=== PATIENT | female | born 1940 | race Two or more races ===

== ENCOUNTER 2024-10-06 23:03 | Emergency (ER) | payer MEDICARE, OTHER, SELFPAY ==
[2024-10-06 23:19] VITALS: BP 156/76
[2024-10-07] MEDS: DECADRON 10 MG IV (00:15)
[2024-10-07] MEDS: PEPCID 20 MG IV (00:16)
[2024-10-07] MEDS: BENADRYL 25 MG IV ×2 (00:16→02:09)
[2024-10-07 00:35] LABS: % Basophils 0.2 % (0-2); % Eosinophils 1.4 % (0-6); % Immature Granulocytes 0.3 % (0-0.5); % Lymphocytes 14.1 % (20.5-51.1); % Monocytes 8.1 % (1.7-9.3); % Neutrophils 75.9 % (42.2-75.2); Absolute Eosinophils 0.1 10^3/uL (0-0.7); Absolute Lymphocytes 1.3 10^3/uL (1.2-3.4); Absolute Monocytes 0.8 10^3/uL (0.1-0.6); Absolute Neutrophils 7.1 10^3/uL (1.4-6.5); Hemoglobin 11.3 g/dL (12.0-16.0); Mean Corp Hgb Conc. 31.4 g/dL (33.0-37.0); Mean Corpuscular Volume 79.6 fL (81.0-99.0); Mean Platelet Volume 9.7 fL (7.4-10.4); Nucleated Red Blood Cells % 0 %; Platelet Count 298 10^3/uL (130-400); Red Blood Cell Count 4.52 10^6/uL (4.20-5.40); White Blood Cell Count 9.4 10^3/uL (4.8-10.8)
[2024-10-07 00:52] LABS: ALT (SGPT) 62 U/L (0-35); AST (SGOT) 43 U/L (14-36); Albumin 4.2 g/dl (3.5-5.0); Alkaline Phosphatase 195 U/L (38-126); Blood Urea Nitrogen 18 mg/dl (7-17); Calcium 9.9 mg/dl (8.4-10.2); Carbon Dioxide 19 mmol/L (22-30); Chloride 106 mmol/L (98-107); Glucose 114 mg/dl (70-99); Potassium 4.2 mmol/L (3.5-5.1); Sodium 136 mmol/L (135-145); Total Bilirubin 0.9 mg/dl (0.2-1.3); Total Protein 6.9 g/dl (6.3-8.2); eGFR > 60.00
[2024-10-07 01:23] LABS: TSH Reflex To Free T4 < 0.02 uIU/ml (0.47-4.68)
--- NOTE | 2024-10-07 01:25 | ED.GENMED ---
History of Present Illness
General
Chief Complaint: Skin Problem
Source: patient
Exam Limitations: none
Time Seen by Provider: 10/06/24 23:55
History of Present Illness
History of Present Illness:
83-year-old female presents with itchy rash to the arms trunk and legs starting yesterday getting worse today. Of note, patient started methimazole 3 weeks ago for hyperthyroidism. She denies chest pain or shortness of breath. Denies difficulty
swallowing. No recent fever or illness. She notes swelling of her fingers and an itchy rash to the palms neck chest and leg
Phy Exam
Physical Exam
Physical Exam:
General: Well-appearing female no acute respiratory distress
HEENT: Normocephalic posterior pharynx patent neck is supple no adenopathy no trismus or stridor
Heart: Regular rate and rhythm no murmurs
Lungs: Clear no wheeze
Skin: Urticarial rash over the palms of the fingers the forearms and elbows as well as the neck and thorax. There is no underlying fluctuance or induration.
Extremities: No cyanosis or edema
Course
Orders/Labs/Results
Orders:
Orders
10/07/24 00:06
Dexamethasone Sod Phosphate [Decadron] 10 mg IV NOW STA
Diphenhydramine [Benadryl] 25 mg IV NOW STA
Famotidine [Pepcid] 20 mg IV NOW STA
10/07/24 00:15
Complete Blood Count/With Diff Urgent
Comprehensive Metabolic Panel Urgent
Free T4 Urgent
TSH Reflex To Free T4 Urgent
Comment: ADD ON
10/07/24 00:23
Add On- LAB Urgent
Tests Added?: tsh reflext to t4
10/07/24 02:07
Diphenhydramine [Benadryl] 25 mg IV NOW STA
10/07/24 02:08
Diphenhydramine [Benadryl] 50 mg .ROUTE .STK-MED ONE
Abnormal Lab Results
10/07/24
00:15
Hgb 11.3 L g/dL
(12.0-16.0)
Hct 36.0 L %
(37.0-47.0)
MCV 79.6 L fL
(81.0-99.0)
MCH 25.0 L pg
(27.0-31.0)
MCHC 31.4 L g/dL
(33.0-37.0)
RDW 16.0 H %
(11.5-14.5)
Absolute Neuts (auto) 7.1 H 10^3/uL
(1.4-6.5)
Absolute Monos (auto) 0.8 H 10^3/uL
(0.1-0.6)
Neutrophils % 75.9 H %
(42.2-75.2)
Lymphocytes % 14.1 L %
(20.5-51.1)
Carbon Dioxide 19 L mmol/L
(22-30)
BUN 18 H mg/dl
(7-17)
Creatinine 0.5 L mg/dL
(0.6-1.0)
Glucose 114 H mg/dl
(70-99)
AST 43 H U/L
(14-36)
ALT 62 H U/L
(0-35)
Alkaline Phosphatase 195 H U/L
(38-126)
TSH (Reflex) < 0.02 L uIU/ml
(0.47-4.68)
10/07/24 00:15
10/07/24 00:15
Vital Signs
Initial and Last Documented VS:
Initial Vital Signs
Temp Pulse Resp BP Pulse Ox
98.7 F 100 20 156/76 95
10/06/24 23:19 10/06/24 23:19 10/06/24 23:19 10/06/24 23:19 10/06/24 23:19
Last Documented Vital Signs
Temp Pulse Resp BP Pulse Ox
98.7 F 99 18 135/67 95
10/06/24 23:19 10/07/24 01:31 10/07/24 01:31 10/07/24 01:31 10/07/24 01:31
MDM/Problems Addressed
Differential Diagnosis Includes:
Rash. This is likely urticaria etiology unclear but could be environmental reaction versus medication reaction versus viral illness
Patient was given Decadron Pepcid and Benadryl IV and will check lab. No respiratory distress. Considered epinephrine however not indicated secondary to lack of respiratory symptoms
*Critical Care Note
Total Time (30-74mins, 75-104mins- exclusive of procedures): Not Applicable
Update Note
Update Note:
Patient had some relief initially after first dose of IV medicine. Symptoms did return soon after that. Patient has allergic reaction potentially to the methimazole she has been taking. The rash is more itchy than it is painful. Recommend
steroid taper and call endocrinology before taking another dose of her methimazole
ED Attending Note
-
Portions of this chart may have been created with voice recognition software.� Occasional wrong word or��sound alike� substitutions may have occurred due to the inherent limitations of voice recognition software.
Discharge Plan
Departure
Patient Disposition: Home (Routine Discharge)
Date of Disposition: 10/07/24
Time of Disposition: 02:35
Patient with high blood pressure during this ER visit?: No
Discharge Problem:
Rash
Instructions: Skin Rash (DC)
Prescriptions:
New
prednisone 10 mg Tablet
See Rx Instructions .ROUTE .COMPLEX Qty: 45 0RF
Rx Instructions:
Take By Mouth:
50 mg daily x3 days, 40 mg daily x3 days,
30 mg daily x3 days, 20 mg daily x3 days,
10 mg daily x3 days
Referrals:
Lisa Jhaveri, [Family Provider] -
Activity Restrictions/Additional Instructions:
Please do not take the methimazole until you speak with your detail assembler. Take prednisone as directed. Use Benadryl every 4 hours. Return if needed otherwise
Interventions
Interventions:
ED-Skin Assessment Last Done: 10/07/24 00:30
Discharge Date and Time
Print Language: URDU
[2024-10-07 01:31] VITALS: BP 135/67
[2024-10-07 01:52] LABS: Free T4 1.84 ng/dl (0.78-2.19)
== END 2024-10-07 02:42 | disposition home or self-care (01) ==
LOC: EMR 23:03
PROVIDERS: Physician Assistant; EMERGENCY PHYSICIAN Emergency Medicine; FAMILY PHYSICIAN Family Medicine
DX: R21 Rash and other nonspecific skin eruption (principal); L29.9 Pruritus, unspecified; E05.90 Thyrotoxicosis, unspecified without thyrotoxic crisis or storm; Z79.899 Other long term (current) drug therapy
CPT/HCPCS: 96374; 96375; 96376; 99284; 80053; 84439; 84443; 85025